=== PATIENT | female | born 1995 | race Caucasian/White ===

== ENCOUNTER 2023-09-09 18:57 | Emergency (ER) | payer OTHER ==
--- NOTE | 2023-09-09 19:20 | ED ---
Head Injury HPI - General Stated complaint: poss Concussion, Neck Pain - Hockey Injury Time Seen by Provider: 09/09/23 19:16 Source: patient Mode of arrival: ambulatory Limitations: no limitations - History of Present Illness Initial comments: 27-year-old female presenting with chief complaint head injury. Patient states that 2 days ago while playing hockey she was hit against the boards and was told that she blacked out. No blood thinners. She states that she has had persistent left-sided head pressure. She has had left-sided lateral neck discomfort with no posterior discomfort. Pain is worse with movement. No nausea vomiting or dizziness. No vision or hearing changes. No numbness, tingling, weakness. No chest pain, difficulty breathing, abdominal pain. She has not been taking any [id number] analgesia. - Related Data Allergies/Adverse reactions: Allergies Allergy/AdvReac Type Severity Reaction Status Date / Time No Known Allergies Allergy Verified 09/09/23 19:19 Review of Systems ROS Statement: Those systems with pertinent positive or pertinent negative responses have been documented in the HPI. ROS Other: All systems not noted in ROS Statement are negative. General Exam - General Exam Comments Initial Comments: Visual Physical Exam Vital signs reviewed General: Well-appearing, nontoxic, no acute distress. Head: Normocephalic, atraumatic Eyes: PERRLA, EOMI ENT: Airway patent Chest: Nonlabored breathing Skin: No visual rash, normal skin tone Neuro: Alert and oriented 3 Musculoskeletal: No gross abnormalities Limitations: no limitations General appearance: alert, in no apparent distress Head exam: Present: atraumatic, normocephalic, normal inspection Eye exam: Present: normal appearance, PERRL, EOMI. Absent: scleral icterus, conjunctival injection, periorbital swelling Neck exam: Present: normal inspection, full ROM. Absent: tenderness (No midline tenderness) Respiratory exam: Absent: respiratory distress Extremities exam: Present: normal inspection, full ROM Back exam: Present: normal inspection Neurological exam: Present: alert, oriented X3 Expanded Patient oriented to: Present: person, place, time Speech: Present: fluid speech Cranial nerves: EOM's Intact: Normal Motor strength exam: RUE: 5, LUE: 5, RLE: 5, LLE: 5 Eye Response: (4) open spontaneously Motor Response: (6) obeys commands Verbal Response: (5) oriented Gloria Total: 15 Psychiatric exam: Present: normal affect, normal mood Skin exam: Present: warm, dry, intact, normal color. Absent: rash Course Vital Signs 09/09/23 19:12 Temperature 98.4 F Pulse Rate 85 Respiratory 20 Rate Blood Pressure 138/77 O2 Sat by Pulse 98 Oximetry Medical Decision Making - Medical Decision Making Was pt. sent in by a medical professional or institution (DWAYNE Olvera, [facility] ATTENDANT, urgent care, hospital, or fci...) When possible be specific @ -No Did you speak to anyone other than the patient for history (EMS, parent, family, police, friend...)? What history was obtained from this source @ -No Did you review nursing and triage notes (agree or disagree)? Why? @ -I reviewed and agree with nursing and triage notes Were old charts reviewed (outside hosp., previous admission, EMS record, old EKG, old radiological studies, urgent care reports/EKG's, fci records)? Report findings @ -No old charts were reviewed Differential Diagnosis (chest pain, altered mental status, abdominal pain women, abdominal pain men, vaginal bleeding, weakness, fever, dyspnea, syncope, headache, dizziness, GI bleed, back pain, seizure, CVA, palpatations, mental health, musculoskeletal)? @ -Differential includes concussion, intracranial hemorrhage, fracture, this is not an all inclusive list EKG interpreted by me (3pts min.). @ -As above X-rays interpreted by me (1pt min.). @ -None done CT interpreted by me (1pt min.). @ -CT shows no acute intracranial process or cervical spine fracture U/S interpreted by me (1pt. min.). @ -None done What testing was considered but not performed or refused? (CT, X-rays, U/S, labs)? Why? @ -None What meds were considered but not given or refused? Why? @ -None Did you discuss the management of the patient with other professionals (professionals i.e. DWAYNE Olvera, [employer] ATTENDANT, lab, RT, psych nurse, child welfare social worker, roping machine tender, teacher, systems support officer, case supervisor)? Give summary @ -No Was smoking cessation discussed for >3mins.? @ -No Was critical care preformed (if so, how long)? @ -No Were there social determinants of health that impacted care today? How? (Homelessness, low income, unemployed, alcoholism, drug addiction, transportation, low edu. Level, literacy, decrease access to med. care, correction, rehab)? @ -No Was there de-escalation of care discussed even if they declined (Discuss DNR or withdrawal of care, Hospice)? DNR status @ -No What co-morbidities impacted this encounter? (DM, HTN, Smoking, COPD, CAD, Cancer, CVA, ARF, Chemo, Hep., AIDS, mental health diagnosis, sleep apnea, morbid obesity)? @ -None Was patient admitted / discharged? Hospital course, mention meds given and route, prescriptions, significant lab abnormalities, going to OR and other pertinent info. @ -27-year-old female presenting with chief complaint of head injury that occurred 2 days ago while playing hockey. She states that she has had a persistent headache today to the area that was hit. History of physical examination are conducted. No focal neurological deficits. No midline tenderness of the cervical spine. CT is negative for acute intracranial process or cervical spine fracture. Patient is educated about these findings. Educated on supportive management of concussion. Do not return to sports until symptoms resolve and you have been cleared by your physician. Follow-up with PCP. Report back to ER with any new or worsening symptoms. Discussed return parameters and answered all questions. Patient conveyed verbal understanding and agreed to the plan. I discussed this case in detail with my attending Dr. Cobos Undiagnosed new problem with uncertain prognosis? @ -No Drug Therapy requiring intensive monitoring for toxicity (Heparin, Nitro, Insulin, Cardizem)? @ -No Were any procedures done? @ -No Diagnosis/symptom? @ -Closed head injury Acute, or Chronic, or Acute on Chronic? @ -Acute Uncomplicated (without systemic symptoms) or Complicated (systemic symptoms)? @ -Uncomplicated Side effects of treatment? @ -No Exacerbation, Progression, or Severe Exacerbation? @ -No Poses a threat to life or bodily function? How? (Chest pain, [place], [place], pneumonia, PE, COPD, DKA, ARF, appy, cholecystitis, CVA, Diverticulitis, Homicidal, Suicidal, threat to staff... and all critical care pts) @ -Low likelihood Disposition Clinical Impression: Closed head injury Disposition: HOME SELF-CARE Condition: Good Instructions (If sedation given, give patient instructions): Head Injury (ED), Sports Concussion (ED) Additional Instructions: Follow-up with PCP. Report back to ER with any new or worsening symptoms. Do not return to hockey until cleared by PCP. Take Motrin and Tylenol as needed for pain control. Is patient prescribed a controlled substance at d/c from ED?: No Referrals: Lisa Sams MD [Primary Care Provider] - 1-2 days Time of Disposition: 20:07
[2023-09-09 19:34] VITALS: BP 138/77; PULSE 85; RESP 20; TEMP 98.4
--- NOTE | 2023-09-09 19:49 | CT ---
EXAMINATION TYPE: CT brain cspine wo con CT DLP: 1270.1 mGycm, Automated exposure control for dose reduction was used. DATE OF EXAM: 09/09/2023 7:34 PM COMPARISON: None. CLINICAL INDICATION:Female, 27 years old with history of head injury; Hit head on ice rink x 2 days a go, LOC. Headache x 2 days ago and today. TECHNIQUE: Brain: Multiple axial CT images of the brain were obtained without IV contrast. Cspine: Axial CT images from the skull base to the inferior aspect of T2 we obtained without intraven ous contrast. Coronal and sagittal reformatted images were also reviewed. FINDINGS: Brain: Extra-axial spaces: No abnormal extra-axial fluid collections. Ventricular system: Within normal limits Cerebral parenchyma: No acute intraparenchymal hemorrhage or mass effect. The charlton-white junction is well differentiated. Cerebellum: Unremarkable. Mass effect: No evidence of midline shift. Intracranial vasculature: unremarkable Soft tissues: Normal. Calvarium/osseous structures: No depressed skull fracture. Paranasal sinuses and mastoid air cells: Clear. Visualized orbits: Orbital contents are intact. Cervical spine: Fracture: None. Osseous structures: Unremarkable Vertebral alignment: Within normal limits. Spinal canal/Neural Foramina: No evidence of significant spinal canal narrowing. No evidence for sign ificant neural foraminal stenosis. Neck soft tissues: Prevertebral soft tissues are within normal limits. Other: The airway is patent. The lung apices are clear. IMPRESSION: 1. No acute intracranial process. 2. No evidence of cervical spine fracture.
== END 2023-09-09 20:23 | disposition home or self-care (01) ==
LOC: EC 18:57
DX: S09.90XA Unspecified injury of head, initial encounter (principal); W01.198A Fall on same level from slipping, tripping and stumbling with subsequent striking against other object, initial encounter; Y93.65 Activity, lacrosse and field hockey
CPT/HCPCS: 70450; 72125; 99283

== ENCOUNTER → 2025-02-02 | Outpatient (CLI) | payer OTHER ==
--- NOTE | 2025-02-02 11:41 | CA ---
Exercise Stress Test Report Name: Emy Tadeo Exam Date: 02/02/2025 11:03 Exam Location: [facility] Stress Ht (in): 66 Wt (lb): 110 BSA: 1.55 Ordering Phys: Yojana Faye DO Referring Phys: Millie Garcia [facility] Technologist: Abdi Mcpherson Age: 29 Gender: F : 1995 Procedure CPT: Indications: R00.2 palpitations ICD-10 Codes: Patient History: Medications: Meds past 24 hrs: Pretest Chest Pain: STRESS TEST [facility]on Protocol Exercise Duration (min:sec): 12:[address] Depressions (mm): Angina Score: Aceves Score: Resting HR (bpm): 101 Peak HR (bpm): 192 Resting BP (mmHg): 113 / 74 Peak BP (mmHg): 151 / 68 MPHR: 189 Target HR: 161 % MPHR: 102 METS: 12.1 Total Dose: Peak Dose: Atropine: Double Product: 58415 BP Response: Stress Termination: Reached target heart rate Stress Symptoms: vertigo Stress Summary: ECG ANALYSIS Resting ECG: Stress ECG: CONCLUSIONS Baseline EKG revealed normal sinus rhythm without significant ST-T changes. Patient walked on a standard Jameson protocol for 12 minutes and achieved a maximal heart rate of 192 bpm which is well above 85% of predicted maximal. She did not have any angina. There was no arrhythmia. She felt a little dizzy towards the end of the test. No anginal symptoms and no arrhythmia. This is a negative stress test by EKG criteria with excellent exercise capacity. Dr. Chu Valdez MD (Electronically Signed) Final Date: 02 Feb 2025 11:40
== END | disposition home or self-care (01) ==
LOC: RADNMMAIN 10:33
PROVIDERS: ATTEND Family Medicine
DX: R00.2 Palpitations (principal); R42 Dizziness and giddiness; R07.9 Chest pain, unspecified
CPT/HCPCS: 93017